=== PATIENT | female | born 1975 | race African-American/Black ===

== ENCOUNTER 2024-07-04 10:56 | Emergency (ER) | payer MEDICAID, OTHER ==
[~2024-07-04] VITALS: Ht 188 cm; Wt 86.0 kg
[2024-07-04 11:11] VITALS: BP 146/90; RESP 16; TEMP 37.1; O2SAT 99
[2024-07-04 12:43] VITALS: TEMP 98.7
[2024-07-04] MEDS: ACETAMINOPHEN 325MG TABLET PO ONE (12:43)
[2024-07-04 13:06] VITALS: PULSE 88
== END 2024-07-04 13:05 | disposition home or self-care (01) ==
LOC: ER 10:56
DX: S20.219A Contusion of unspecified front wall of thorax, initial encounter (principal); S09.90XA Unspecified injury of head, initial encounter; I49.9 Cardiac arrhythmia, unspecified; V43.52XA Car driver injured in collision with other type car in traffic accident, initial encounter; Y93.89 Activity, other specified; Y92.89 Other specified places as the place of occurrence of the external cause; Y99.8 Other external cause status
CPT/HCPCS: 71045; 93005; 99284